=== PATIENT | female | born 1995 | race Caucasian/White ===

== ENCOUNTER 2017-01-05 18:05 | Emergency (ER) | payer OTHER ==
[~2017-01-05] VITALS: Ht 162.5 cm; Wt 63.5 kg
[~2017-01-05 18:05] MED LIST: NAPROSYN500 MG PO
[2017-01-05] MEDS ORDERED: PRENATAL ONE D1 EACH PO (18:36)
== END 2017-01-05 19:06 | disposition home or self-care (01) ==
LOC: ED 18:05
DX: Z32.01 Encounter for pregnancy test, result positive (principal); F17.200 Nicotine dependence, unspecified, uncomplicated

== ENCOUNTER 2018-11-30 18:13 | Emergency (ER) | payer OTHER, BC ==
[~2018-11-30] VITALS: Ht 165.1 cm; Wt 63.5 kg
[~2018-11-30 18:13] MED LIST changes: +PRENATAL ONE D1 EACH PO
[2018-11-30] MEDS ORDERED: NAPROSYN500 MG PO (20:07)
[2018-11-30] MEDS ORDERED: ROBAXIN500 M1 PO (20:07)
[2018-11-30] MEDS ORDERED: MEDROL DOSEPAK4 MG PO (20:07)
== END 2018-11-30 20:00 | disposition home or self-care (01) ==
LOC: ED 18:13
DX: S29.012A Strain of muscle and tendon of back wall of thorax, initial encounter (principal); S80.812A Abrasion, left lower leg, initial encounter; T22.212A Burn of second degree of left forearm, initial encounter; T24.111A Burn of first degree of right thigh, initial encounter; T24.112A Burn of first degree of left thigh, initial encounter; V49.9XXA Car occupant (driver) (passenger) injured in unspecified traffic accident, initial encounter; Y93.89 Activity, other specified; Y92.89 Other specified places as the place of occurrence of the external cause; Y99.8 Other external cause status

== ENCOUNTER 2022-02-19 10:41 | Emergency (ER) | payer MEDICAID ==
[~2022-02-19] VITALS: Ht 162.5 cm; Wt 59.0 kg
[~2022-02-19 10:41] MED LIST changes: +MEDROL DOSEPAK4 MG PO; +ROBAXIN500 M1 PO
[2022-02-19 12:24] LABS: BASO # 0.1 10*3/uL (0.0-0.1); BASO % 0.9 % (0.0-1.0); EOS # 0.4 10*3/uL (0.0-0.4); EOS % 4.7 % (1.0-4.0); HEMATOCRIT 36.2 % (37.0-47.0); LYMPH # 2.5 10*3/uL (1.3-4.4); LYMPH % 33.3 % (27.0-41.0); MEAN CELL VOLUME 93.3 fl (81.0-99.0); MEAN CORPUSCULAR HGB 31.2 pg (27.0-31.0); MEAN CORPUSCULAR HGB CONC 33.4 g/dl (33.0-37.0); MEAN PLATELET VOLUME 10.9 fl (9.6-12.3); MONO # 0.4 10*3/uL (0.1-1.0); MONO % 5.9 % (3.0-9.0); NEUT # 4.1 10*3/uL (2.3-7.9); NEUT % 54.9 % (47.0-73.0); PLATELET COUNT AUTOMATED 207 10*3/uL (130-400); RED BLOOD COUNT 3.88 10*6/uL (4.10-5.10); RED CELL DISTRI WIDTH 12.7 % (0-14.5); WHITE BLOOD COUNT 7.4 10*3/uL (4.8-10.8)
[2022-02-19 12:34] LABS: ACT PARTIAL THROMBO TIME 28.2 SECONDS (20.0-32.1); INTERNATIONAL NORM RATIO 1.1 (2.0-3.5)
[2022-02-19 12:43] LABS: BILIRUBIN 2+ (Negative); BLOOD 2+ (Negative); CLARITY Turbid (Clear); GLUCOSE Negative (Negative); KETONE Negative (Negative); LEUKO ESTERASE 3+ (Negative); NITRITE Positive (Negative); SPECIFIC GRAVITY >= 1.030 (1.001-1.030); UROBILINOGEN 0.2 E.U./dl (0.0-1.0)
[2022-02-19 12:44] LABS: ALKALINE PHOSPHATASE 57 U/L (45-117); BUN 11 mg/dl (7-24); CHLORIDE 106 mmol/L (98-107); CREATININE 0.92 mg/dL (0.55-1.02); LIPASE 80 U/L (73-393); POTASSIUM 3.9 mmol/L (3.5-5.1); SGPT/ALT 15 U/L (12-78); SODIUM 139 mmol/L (136-145); TOTAL PROTEIN 6.6 gm/dL (6.4-8.2)
[2022-02-19 13:09] LABS: URINE AMPHETAMINES < 1000 (1000ng/ml); URINE BARBITURATES < 200 (200ng/ml); URINE BENZODIAZEPINES > 200 (200ng/ml); URINE CANNABINOIDS (THC) < 50 (50ng/ml); URINE COCAINE > 300 (300ng/ml); URINE METHADONE < 300 (300ng/ml); URINE OPIATES > 300 (300ng/ml)
[2022-02-19 13:17] LABS: URINE PHENCYCLIDINE < 25 (25ng/ml)
[2022-02-19 13:21] LABS: COLOR Red (Yellow)
[2022-02-19 13:22] LABS: RBC TNTC rbc/hpf (0-2); WBC TNTC wbc/hpf (0-5)
[2022-02-19] MEDS ORDERED: DIFLUCAN150 MG PO (14:05)
[2022-02-19] MEDS ORDERED: CEPHALEXIN500 M1 PO (14:05)
== END 2022-02-19 14:10 | disposition home or self-care (01) ==
LOC: ED 10:41
PROVIDERS: Family Medicine
DX: R07.89 Other chest pain (principal); R55 Syncope and collapse; N39.0 Urinary tract infection, site not specified; R20.2 Paresthesia of skin; F19.10 Other psychoactive substance abuse, uncomplicated; Z86.73 Personal history of transient ischemic attack (TIA), and cerebral infarction without residual deficits; Z79.899 Other long term (current) drug therapy

== ENCOUNTER 2022-02-25 08:10 | Emergency (ER) | payer MEDICAID ==
[~2022-02-25 08:10] MED LIST changes: +CEPHALEXIN500 M1 PO; +DIFLUCAN150 MG PO
[2022-02-25 10:25] LABS: BILIRUBIN Negative (Negative); BLOOD Negative (Negative); CLARITY Turbid (Clear); COLOR Dark Yellow (Yellow); GLUCOSE Negative (Negative); KETONE 1+ (Negative); LEUKO ESTERASE 2+ (Negative); NITRITE Negative (Negative); SPECIFIC GRAVITY >= 1.030 (1.001-1.030)
[2022-02-25 11:03] LABS: PH >= 9.0 (4.5-8.0)
[2022-02-25 11:05] LABS: BACTERIA 4+; TRIP PHOS CRYSTALS 4+
[2022-02-25 11:06] LABS: URINE AMPHETAMINES < 1000 (1000ng/ml); URINE BARBITURATES < 200 (200ng/ml); URINE BENZODIAZEPINES > 200 (200ng/ml); URINE CANNABINOIDS (THC) < 50 (50ng/ml); URINE COCAINE > 300 (300ng/ml); URINE METHADONE < 300 (300ng/ml); URINE OPIATES > 300 (300ng/ml)
[2022-02-25 11:08] LABS: URINE PHENCYCLIDINE < 25 (25ng/ml)
[2022-02-25] MEDS ORDERED: ONDANSETRON HYDR4 M1 PO (13:21)
== END 2022-02-25 13:40 | disposition home or self-care (01) ==
LOC: ED 08:10
PROVIDERS: Student in an Organized Health Care Education/Training Program
DX: F11.23 Opioid dependence with withdrawal (principal)

== ENCOUNTER 2023-05-12 19:19 | Emergency (ER) | payer MEDICAID ==
[~2023-05-12] VITALS: Ht 162.5 cm; Wt 70.3 kg
[~2023-05-12 19:19] MED LIST changes: +ONDANSETRON HYDR4 M1 PO
[2023-05-12] MEDS ORDERED: Ondansetron Hydrochloride 4 MG/2 ML VIAL IV ONE (20:10)
[2023-05-12] MEDS ORDERED: SODIUM CHLORIDE 0.9% 1,000 ML IV ONE (20:10)
[2023-05-12] MEDS ORDERED: IOHEXOL 300 MG/ML 100 ML VIAL IV ONE (20:15)
[2023-05-12 20:21] LABS: BASO % 0.2 % (0.0-1.0); EOS # 0.1 10*3/uL (0.0-0.4); EOS % 0.5 % (1.0-4.0); HEMATOCRIT 40.9 % (37.0-47.0); LYMPH # 0.8 10*3/uL (1.3-4.4); LYMPH % 6.2 % (27.0-41.0); MEAN CELL VOLUME 95.8 fl (81.0-99.0); MEAN CORPUSCULAR HGB 30.9 pg (27.0-31.0); MEAN CORPUSCULAR HGB CONC 32.3 g/dl (33.0-37.0); MEAN PLATELET VOLUME 10.4 fl (9.6-12.3); MONO # 0.5 10*3/uL (0.1-1.0); MONO % 3.5 % (3.0-9.0); PLATELET COUNT AUTOMATED 199 10*3/uL (130-400); RED BLOOD COUNT 4.27 10*6/uL (4.10-5.10); RED CELL DISTRI WIDTH 12.4 % (0-14.5); WHITE BLOOD COUNT 13.5 10*3/uL (4.8-10.8)
[2023-05-12 20:43] LABS: ALKALINE PHOSPHATASE 67 U/L (46-116); BUN 14 mg/dl (9-23); CHLORIDE 100 mmol/L (98-107); LIPASE 19 U/L (12-53); POTASSIUM 3.8 mmol/L (3.4-5.1); SGPT/ALT 12 U/L (5-49); TOTAL PROTEIN 7.6 gm/dL (6.0-8.0)
[2023-05-12 21:04] LABS: BILIRUBIN 2+ (Negative); BLOOD 1+ (Negative); CLARITY Turbid (Clear); COLOR Red (Yellow); GLUCOSE Negative (Negative); KETONE Negative (Negative); LEUKO ESTERASE 3+ (Negative); NITRITE Positive (Negative); SPECIFIC GRAVITY >= 1.030 (1.001-1.030); UROBILINOGEN 0.2 E.U./dl (0.0-1.0)
[2023-05-12 21:19] LABS: BACTERIA 4+; EPITHELIAL CELLS 21-30; RBC 41-50 rbc/hpf (0-2); WBC 31-40 wbc/hpf (0-5)
[2023-05-12] MEDS ORDERED: CEPHALEXIN 500 MG CAP PO ONE (21:40)
[2023-05-12] MEDS ORDERED: FLUCONAZOLE 150 MG TAB PO ONE (22:00)
[2023-05-12] MEDS ORDERED: CEPHALEXIN500 M1 PO (22:42)
[2023-05-12] MEDS ORDERED: ONDANSETRON4 MG SL (22:42)
[2023-05-12] MEDS ORDERED: Acetaminophen/Hydrocodone 5 MG/325 MG TABLET PO ONE (22:55)
== END 2023-05-12 23:22 | disposition home or self-care (01) ==
LOC: ED 19:19
PROVIDERS: Nurse Practitioner Family
DX: N39.0 Urinary tract infection, site not specified (principal); K52.9 Noninfective gastroenteritis and colitis, unspecified; R11.2 Nausea with vomiting, unspecified; N93.9 Abnormal uterine and vaginal bleeding, unspecified

== ENCOUNTER 2023-06-06 21:28 | Emergency (ER) | payer MEDICAID ==
[~2023-06-06] VITALS: Ht 167.6 cm; Wt 81.6 kg
[~2023-06-06 21:28] MED LIST changes: +ONDANSETRON4 MG SL
[2023-06-06 21:48] LABS: BASO # 0.1 10*3/uL (0.0-0.1); BASO % 0.7 % (0.0-1.0); EOS # 0.5 10*3/uL (0.0-0.4); HEMATOCRIT 40.9 % (37.0-47.0); LYMPH # 2.4 10*3/uL (1.3-4.4); LYMPH % 32.4 % (27.0-41.0); MEAN CELL VOLUME 97.1 fl (81.0-99.0); MEAN CORPUSCULAR HGB 30.9 pg (27.0-31.0); MEAN CORPUSCULAR HGB CONC 31.8 g/dl (33.0-37.0); MEAN PLATELET VOLUME 9.9 fl (9.6-12.3); MONO # 0.5 10*3/uL (0.1-1.0); MONO % 6.8 % (3.0-9.0); NEUT # 4.1 10*3/uL (2.3-7.9); PLATELET COUNT AUTOMATED 281 10*3/uL (130-400); RED BLOOD COUNT 4.21 10*6/uL (4.10-5.10); RED CELL DISTRI WIDTH 12.4 % (0-14.5); WHITE BLOOD COUNT 7.5 10*3/uL (4.8-10.8)
[2023-06-06 22:08] LABS: BILIRUBIN Negative (Negative); BLOOD Negative (Negative); CLARITY Turbid (Clear); COLOR Yellow (Yellow); GLUCOSE Negative (Negative); KETONE Negative (Negative); LEUKO ESTERASE Trace (Negative); NITRITE Negative (Negative); PH 5.5 (4.5-8.0); SPECIFIC GRAVITY 1.025 (1.001-1.030)
[2023-06-06 22:13] LABS: BUN 10 mg/dl (9-23); CHLORIDE 106 mmol/L (98-107); LIPASE 26 U/L (12-53); POTASSIUM 3.8 mmol/L (3.4-5.1)
[2023-06-06 22:15] LABS: URINE AMPHETAMINES Negative (1000ng/ml); URINE BARBITURATES Negative (200ng/ml); URINE BENZODIAZEPINES Negative (200ng/ml); URINE CANNABINOIDS (THC) Negative (50ng/ml); URINE COCAINE Negative (300ng/ml); URINE METHADONE Negative (300ng/ml); URINE OPIATES Negative (300ng/ml); URINE PHENCYCLIDINE Negative (25ng/ml)
[2023-06-06 22:59] LABS: EPITHELIAL CELLS TNTC
[2023-06-06 23:00] LABS: BACTERIA TRACE
[2023-06-06] MEDS ORDERED: MIRALAX POWDER17 G1 PO (23:28)
== END 2023-06-07 00:03 | disposition home or self-care (01) ==
LOC: ED 21:28
PROVIDERS: Internal Medicine
DX: K59.00 Constipation, unspecified (principal); R11.2 Nausea with vomiting, unspecified; Z79.899 Other long term (current) drug therapy

== ENCOUNTER → 2023-07-25 | Outpatient (CLI) | payer OTHER ==
[~2023-07-25] MED LIST changes: +MIRALAX POWDER17 G1 PO
[2023-07-25 09:24] LABS: BASO # 0.1 10*3/uL (0.0-0.1); BASO % 1.1 % (0.0-1.0); EOS # 0.2 10*3/uL (0.0-0.4); EOS % 2.9 % (1.0-4.0); HEMATOCRIT 45.5 % (37.0-47.0); LYMPH # 2.5 10*3/uL (1.3-4.4); LYMPH % 32.7 % (27.0-41.0); MEAN CELL VOLUME 94.8 fl (81.0-99.0); MEAN CORPUSCULAR HGB 30.8 pg (27.0-31.0); MEAN CORPUSCULAR HGB CONC 32.5 g/dl (33.0-37.0); MEAN PLATELET VOLUME 10.4 fl (9.6-12.3); MONO # 0.5 10*3/uL (0.1-1.0); MONO % 6.4 % (3.0-9.0); NEUT # 4.3 10*3/uL (2.3-7.9); NEUT % 56.8 % (47.0-73.0); PLATELET COUNT AUTOMATED 270 10*3/uL (130-400); RED CELL DISTRI WIDTH 12.3 % (0-14.5); WHITE BLOOD COUNT 7.6 10*3/uL (4.8-10.8)
[2023-07-25 09:48] LABS: ALKALINE PHOSPHATASE 75 U/L (46-116); BUN 9 mg/dl (9-23); CHLORIDE 108 mmol/L (98-107); CHOLESTEROL 170 mg/dL (<200); LDL CHOLESTEROL 83 mg/dL (9-159); POTASSIUM 4.2 mmol/L (3.4-5.1); SGPT/ALT 9 U/L (5-49); TOTAL PROTEIN 7.3 gm/dL (6.0-8.0)
[2023-07-25 10:22] LABS: VITAMIN D, 25-HYDROXY 29.2 ng/mL (30-100)
[2023-07-26 06:08] LABS: HBSAG Negative (Negative); HEP B CORE AB, IGM Negative (Negative); HEPATITIS C ANTIBODY Non Reactive (Non Reactive)
== END | disposition home or self-care (01) ==
LOC: LAB 08:47
PROVIDERS: ATTEND Registered Nurse
DX: Z11.59 Encounter for screening for other viral diseases (principal); Z13.1 Encounter for screening for diabetes mellitus; Z13.220 Encounter for screening for lipoid disorders; F19.20 Other psychoactive substance dependence, uncomplicated

== ENCOUNTER 2025-03-09 17:39 | Emergency (ER) | payer MEDICAID ==
[~2025-03-09] VITALS: Ht 162.5 cm; Wt 80.7 kg
[2025-03-09 19:23] LABS: BASO # 0.1 10*3/uL (0.0-0.1); BASO % 0.8 % (0.0-1.0); EOS # 0.5 10*3/uL (0.0-0.4); EOS % 4.6 % (1.0-4.0); MEAN CELL VOLUME 94.2 fl (81.0-99.0); MEAN CORPUSCULAR HGB 31.0 pg (27.0-31.0); MEAN PLATELET VOLUME 10.1 fl (9.6-12.3); MONO # 0.8 10*3/uL (0.1-1.0); MONO % 7.1 % (3.0-9.0); NEUT # 7.2 10*3/uL (2.3-7.9); NEUT % 68.0 % (47.0-73.0); NUCLEATED RED BLOOD CELL 0.0 % (0.0-0.0); NUCLEATED RED BLOOD CELL 0.0 10*3/uL (0.0-0.0); PLATELET COUNT AUTOMATED 256 10*3/uL (130-400); RED CELL DISTRI WIDTH 12.2 % (0-14.5)
[2025-03-09 19:50] LABS: BUN 12 mg/dl (9-23); SGPT/ALT 9 U/L (5-49)
[2025-03-09] MEDS ORDERED: CLINDAMYCIN HCL 300 MG CAPSULE PO ONE (19:55)
[2025-03-09] MEDS ORDERED: CLEOCIN HCL300 MG PO (19:56)
[2025-03-09] MEDS ORDERED: IBU800 MG PO (19:56)
== END 2025-03-09 20:04 | disposition home or self-care (01) ==
LOC: ED 17:39
PROVIDERS: Nurse Practitioner
DX: K04.7 Periapical abscess without sinus (principal)